=== PATIENT | male | born 1995 | race Two or more races ===

== ENCOUNTER 2022-06-19 20:24 | Emergency (ER) | payer SELFPAY ==
[~2022-06-19] VITALS: Ht 175.3 cm; Wt 75.7 kg
[2022-06-19] MEDS ORDERED: ONDANSETRON 4 MG TAB.RAPDIS PO ONE (21:00)
[2022-06-19] MEDS ORDERED: IV NS 0.9% 1,000 ML BAG IV ONE (21:00)
--- NOTE | 2022-06-19 21:10 | NUR ---
PT UNABLE TO PROVIDE URINE SAMPLE AT THIS TIME
[2022-06-19] MEDS ORDERED: ONDANSETRON 4 MG TAB.RAPDIS ONE (21:11)
--- NOTE | 2022-06-19 21:15 | NUR ---
IV LINE STARTED AT R HAND 20G
[2022-06-19 21:22] LABS: BASOPHILS % (AUTO) 0.6 % (0.0-2.0); EOSINOPHILS % (AUTO) 3.2 % (0.0-6.0); HEMATOCRIT 38 % (39-51); HEMOGLOBIN 12.6 g/dL (13.5-17.5); LYMPHOCYTES # (AUTO) 1.7 K/uL (0.8-4.8); LYMPHOCYTES % (AUTO) 23.2 % (20.0-44.0); MEAN CORPUSCULAR HGB CONC 34 g/dl (31.0-36.0); MEAN CORPUSCULAR VOLUME 84 fL (80-96); MONOCYTES # (AUTO) 0.7 K/uL (0.1-1.30); MONOCYTES % (AUTO) 9.3 % (2.0-12.0); NEUTROPHILS # (AUTO) 4.7 K/uL (1.8-8.9); NEUTROPHILS % (AUTO) 63.7 % (43.0-81.0); PLATELET COUNT (AUTO) 269 K/uL (150-450); RED BLOOD CELL COUNT(AUTO) 4.46 MIL/uL (4.5-6.0); WHITE BLOOD COUNT (AUTO) 7.3 K/uL (4.3-11.0)
--- NOTE | 2022-06-19 21:27 | NUR ---
ACCOUNTING SYSTEM EXPERT AT BEDSIDE FOR CXR
[2022-06-19 21:37] LABS: ALANINE AMINOTRANSFERASE 29 U/L (12-78); ALBUMIN 3.6 g/dL (3.4-5.0); ALKALINE PHOSPHATASE 63 U/L (46-116); ASPARTATE AMINOTRANSFERASE 37 U/L (15-37); BILIRUBIN,DIRECT 0.2 mg/dL (0.0-0.2); BILIRUBIN,TOTAL 0.5 mg/dL (0.2-1.0); CALCIUM, SERUM 8.7 mg/dL (8.5-10.1); CARBON DIOXIDE 33 mmol/L (21-32); CHLORIDE 101 mmol/L (98-107); CREATININE 0.8 mg/dL (0.6-1.3); GLUCOSE 89 mg/dL (74-106); POTASSIUM 3.3 mmol/L (3.5-5.1); SODIUM SERUM 138 mmol/L (136-145); TOTAL PROTEIN, SERUM 7.4 g/dL (6.4-8.2); UREA NITROGEN, BLOOD 15 mg/dL (7-18)
[2022-06-19 21:40] LABS: ACETAMINOPHEN 0 ug/ml (10-30); ALCOHOL, BLOOD < 3 mg/dL (0-0)
--- NOTE | 2022-06-19 23:28 | NUR ---
PT STILL UNABLE TO PROVIDE URINE SAMPLE AT THIS TIME
[2022-06-19] MEDS ORDERED: NALO1DIS2 IJ (23:41)
--- NOTE | 2022-06-20 01:45 | NUR ---
URINE COLLECTED, SENT TO LAB
[2022-06-20 03:01] LABS: COLOR,URINE YELLOW (YELLOW)
[2022-06-20 03:02] LABS: BILIRUBIN,URINE NEGATIVE (NEGATIVE); LEUKOCYTE ESTERASE ,URINE NEGATIVE (NEGATIVE); NITRITE, URINE NEGATIVE (NEGATIVE); PROTEIN,URINE NEGATIVE (NEGATIVE); UGLUCOSE NEGATIVE (NEGATIVE); UROBILINOGEN,URINE 0.2 EU/dL (0.2)
--- NOTE | 2022-06-20 03:45 | NUR ---
pt ambulatory on steady gait to the restroom. pt also tolerated po challenge.
--- NOTE | 2022-06-20 06:06 | NUR ---
Patient discharged to home in stable condition. Written and verbal after care instructions given. Patient verbalizes understanding of instruction. Pt ambulatory with a steady gait
[2022-06-20 06:07] VITALS: BP 115/59
== END 2022-06-20 06:07 | disposition home or self-care (01) ==
LOC: ER 20:30
DX: R40.20 Unspecified coma (principal); T40.1X1A Poisoning by heroin, accidental (unintentional), initial encounter; R11.2 Nausea with vomiting, unspecified; J45.909 Unspecified asthma, uncomplicated; Z59.00 Homelessness unspecified; Y92.511 Restaurant or cafe as the place of occurrence of the external cause
CPT/HCPCS: 99285; 96360; 93005; 71045; 85025; 80048; 80076; 36415; 82962; 80143; 80320; 80307; 81003; J7030; Q0162; G0480